=== PATIENT | female | born 1960 | race Two or more races ===

== ENCOUNTER 2024-04-03 17:36 | Emergency (ER) | payer OTHER, BC ==
[~2024-04-03] VITALS: Ht 160 cm; Wt 67.3 kg
[2024-04-03] MEDS: MAALOX PLUS or MAALOX 30 ML PO ONE (19:30)
[2024-04-03] MEDS: LIDOCAINE VISCOUS 2% 15ML UD PO ONE (19:30)
[2024-04-03 20:03] LABS: Basophils # (auto) 0 10 ^3/uL (0-0.2); Basophils % (auto) 0.6 % (0.0-2.0); Eosinophils # (auto) 0 10 ^3/uL (0-0.8); Eosinophils % (auto) 0.1 % (0.0-7.0); Hematocrit 40.3 % (36.0-46.0); Hemoglobin 13.5 g/dL (12.2-16.2); Lymphocytes # (auto) 1.1 10 ^3/uL (0.4-5.4); Lymphocytes % (auto) 26.9 % (10.0-50.0); Mean Corpuscular Hemoglobin 29.4 pg (28.0-32.0); Mean Corpuscular Hgb Conc. 33.5 g/dL (32.0-36.0); Mean Corpuscular Volume 87.7 fL (80.0-100.0); Monocytes # (auto) 0.3 10 ^3/uL (0-1.3); Monocytes % (auto) 7.2 % (0.0-12.0); Neutrophils # (auto) 2.6 10 ^3/uL (1.6-8.6); Neutrophils % (auto) 65.2 % (37.0-80.0); Red Blood Cells 4.59 10^6/uL (4.0-5.20); Red Cell Distribution Width 13.6 % (11.8-14.3)
[2024-04-03 20:07] LABS: Chloride 103 mmol/L (98-107); Potassium 3.7 mmol/L (3.5-5.1); Sodium 137 mmol/L (136-145)
[2024-04-03 20:08] LABS: Anion Gap 9 (5-15); Calcium 9.2 mg/dL (8.7-10.4); Carbon Dioxide 25 mmol/L (20-30)
[2024-04-03 20:13] LABS: BUN/Creatinine Ratio 22.8 (10.0-20.0); Blood Urea Nitrogen 13 mg/dL (9-23); Glucose 126 mg/dL (74-106); Lipase 46 U/L (12-53)
[2024-04-03 21:03] VITALS: BP 132/65; PULSE 87; RESP 20; TEMP 98.2; O2SAT 96
[2024-04-03] MEDS ORDERED: OMEP-335 PO (21:55)
[2024-04-03] MEDS: PANTOPRAZOLE 40 MG TAB PO ONE (22:05)
== END 2024-04-03 22:12 | disposition home or self-care (01) ==
LOC: ER 17:36
DX: K25.9 Gastric ulcer, unspecified as acute or chronic, without hemorrhage or perforation (principal)
CPT/HCPCS: 36415; 80048; 83690; 85025; 93005

== ENCOUNTER 2024-05-19 09:04 | Emergency (ER) | payer OTHER, BC ==
[~2024-05-19] VITALS: Ht 160 cm; Wt 66.3 kg
[~2024-05-19 09:04] MED LIST: OMEP-335 PO
[2024-05-19 09:35] VITALS: BP 142/73; PULSE 85; RESP 20; TEMP 97.7; O2SAT 97
[2024-05-19] MEDS: HYDROcodone-ACET 5/325MG TAB PO ONE (10:31)
[2024-05-19] MEDS ORDERED: MELO7.5T7 PO (11:44)
== END 2024-05-19 11:52 | disposition home or self-care (01) ==
LOC: ER 09:04
DX: M17.11 Unilateral primary osteoarthritis, right knee (principal)
CPT/HCPCS: 73564